=== PATIENT | male | born 1930 | race Caucasian/White ===

== ENCOUNTER 2017-03-14 10:52 | Inpatient (IN) ==
[2017-03-14] MEDS ORDERED: NS 1,000 ML IV ONE (11:14)
[2017-03-14] MEDS ORDERED: ZOFRAN IV PRN (11:14)
[2017-03-14 12:19] LABS: MANUAL DIFF NEEDED? NO; URINE SOURCE CATH
[2017-03-14 12:24] LABS: BASO% 0.2 % (0.0-0.8); HEMATOCRIT 43.6 % (42.0-52.0); HEMOGLOBIN 14.6 g/dL (14.0-18.0); LYMPH# 1.25 X1000 (1.2-3.4); LYMPH% 27.4 % (20.5-51.1); MCH 29.7 PG (27-31); MCHC 33.5 g/dL (33-37); MCV 88.6 FL (81-99); MONO% 19.7 % (1.7-9.3); MPV 9.7 FL (7.4-10.4); NEUT% 52.7 % (42.2-75.2); PLT 287 X1000 (130-400); RBC 4.92 XMIL (4.7-6.1)
[2017-03-14 12:26] LABS: BILIRUBIN URINE NEGATIVE (NEGATIVE); BLOOD URINE MODERATE (NEGATIVE); COLOR YELLOW; GLUCOSE URINE NEGATIVE (NEGATIVE); LEUKOCYTES URINE LARGE (NEGATIVE); NITRITE URINE NEGATIVE (NEGATIVE); PH URINE 5.5; PROTEIN URINE 30 mg/dL (NEGATIVE); SP GRAVITY URINE 1.023; TURBIDITY URINE HAZY (CLEAR); URINE MICRO REVIEW NEEDED? YES; UROBILINOGEN URINE NORMAL (NORMAL)
[2017-03-14 12:40] LABS: CALCIUM 10.5 mg/dL (8.8-10.2); POTASSIUM 4.1 mmol/L (3.5-5.1)
[2017-03-14 12:42] LABS: UR EPITHELIAL CELLS <10 /HPF (<10); URINE BACTERIA 4+ /HPF; URINE CULTURE NEEDED? YES; URINE WBC TNTC /HPF (<10)
[2017-03-14] MEDS: LOVENOX SUBQ SCH (14:11)
[2017-03-14] MEDS: LEVAQUIN 250 MG/D5W 250 MG/50 ML IVPB IV SCH (14:11)
[2017-03-15] MEDS: LOVENOX SUBQ SCH (13:06)
[2017-03-15] MEDS: LEVAQUIN 250 MG/D5W 250 MG/50 ML IVPB IV SCH (13:06)
[2017-03-16] MEDS: NS 1,000 ML IV SCH (10:31)
[2017-03-16] MEDS: PRIMAXIN IV SCH ×2 (11:01→21:29)
[2017-03-16] MEDS: NS IV SCH ×2 (11:01→21:29)
[2017-03-16] MEDS: LOVENOX SUBQ SCH (15:50)
[2017-03-17] MEDS: NS 1,000 ML IV SCH (01:00)
[2017-03-17] MEDS: NS IV SCH (04:59)
[2017-03-17] MEDS: PRIMAXIN IV SCH (04:59)
[2017-03-17] MEDS ORDERED: DITROPAN XL PO PRN (09:04)
[2017-03-17] MEDS ORDERED: INVANZ 1 GM/NS 1 GM/50 ML IVPB IV ONE (10:54)
[2017-03-17] MEDS: LOVENOX SUBQ SCH (12:21)
[2017-03-17] MEDS: INVANZ 1 GM/NS 1 GM/50 ML IVPB IV SCH (12:21)
[2017-03-17 13:28] LABS: INR 1.04; PROTIME 10.9 Seconds (9.2-11.7)
[2017-03-17] MEDS ORDERED: NS 250 ML ONE (14:31)
[2017-03-18 08:32] LABS: MANUAL DIFF NEEDED? NO
[2017-03-18 08:36] LABS: BASO% 0.9 % (0.0-0.8); EOS# 0.25 X1000 (0.0-0.7); EOS% 2.8 % (0.0-10.0); IMM GRAN# 0.21 X1000 (0.0-0.04); IMM GRAN% 2.4 % (0.0-0.5); LYMPH# 2.71 X1000 (1.2-3.4); LYMPH% 30.8 % (20.5-51.1); MCH 29.5 PG (27-31); MCHC 32.4 g/dL (33-37); MCV 90.9 FL (81-99); MONO# 1.01 X1000 (0.11-0.59); MONO% 11.5 % (1.7-9.3); MPV 9.4 FL (7.4-10.4); NEUT% 51.6 % (42.2-75.2); PLT 219 X1000 (130-400); RBC 4.07 XMIL (4.7-6.1)
[2017-03-18] MEDS: INVANZ 1 GM/NS 1 GM/50 ML IVPB IV SCH (09:30)
[2017-03-18] MEDS: LOPRESSOR PO SCH (09:30)
[2017-03-18] MEDS: LOVENOX SUBQ SCH (14:23)
[2017-03-19] MEDS ORDERED: NAPROSYN PO PRN (08:39)
[2017-03-19] MEDS: LOPRESSOR PO SCH (08:40)
[2017-03-19] MEDS: INVANZ 1 GM/NS 1 GM/50 ML IVPB IV SCH (08:41)
[2017-03-19] MEDS ORDERED: CULTURELLE PO SCH (09:00)
[2017-03-19 16:05] VITALS: BP 130/60
== END 2017-03-19 16:05 ==
LOC: ED 10:52 → 4N 12:57
PROVIDERS: ADMIT Internal Medicine; ATTEND Internal Medicine

== ENCOUNTER 2018-08-28 17:41 | Inpatient (IN) ==
[2018-08-28] MEDS ORDERED: TYLENOL PO PRN (18:32)
[2018-08-28] MEDS ORDERED: SALINE LOCK IV FLUID XX ONE (18:32)
[2018-08-28] MEDS: MORPHINE IV PRN ×2 (20:11→22:54)
[2018-08-28] MEDS: ZOFRAN IV PRN (20:12)
[2018-08-28 20:45] LABS: INR 1.05; PROTIME 14.6 Seconds (11.0-16.0)
[2018-08-28 20:46] LABS: BASO# 0.01 X1000 (0.0-0.2); HEMATOCRIT 38.4 % (42.0-52.0); HEMOGLOBIN 12.7 g/dL (14.0-18.0); IMM GRAN# 0.12 X1000 (0.0-0.04); IMM GRAN% 0.6 % (0.0-0.5); LYMPH% 7.5 % (20.5-51.1); MCHC 33.1 g/dL (33-37); MCV 87.7 FL (81-99); MONO% 7.9 % (1.7-9.3); MPV 9.6 FL (7.4-10.4); NEUT# 17.98 X1000 (1.4-6.5); PLT 300 X1000 (130-400); PTT 35.4 Seconds (22.3-41.8); RBC 4.38 XMIL (4.7-6.1); RDW 14.7 % (11.5-14.5); WBC 21.41 X1000 (4.8-10.8)
[2018-08-28 20:51] LABS: ALB/GLOB RATIO 1.1; ALBUMIN 3.3 g/dL (3.5-5.0); CALCIUM 8.3 mg/dL (8.8-10.2); CREATININE 3.5 mg/dL (0.7-1.2); PHOSPHORUS 2.5 mg/dL (2.7-4.5); TOTAL BILIRUBIN 0.45 mg/dL (0.20-1.00); TOTAL PROTEIN 6.4 g/dL (6.3-8.3)
[2018-08-28] MEDS ORDERED: AMIKACIN IV SCH (21:15)
[2018-08-28] MEDS ORDERED: NS IV SCH (21:15)
[2018-08-28] MEDS: NS 1,000 ML IV SCH (22:49)
[2018-08-29] MEDS ORDERED: MISC. PHARMACY COMMUNICATION SCH ×2 (00:15)
[2018-08-29] MEDS: NS IV SCH (00:42)
[2018-08-29] MEDS: AMIKACIN IV SCH (00:42)
--- NOTE | 2018-08-29 00:49 | HISTORY AND PHYSICAL ---
CHIEF COMPLAINT: Hematuria. HISTORY OF PRESENT ILLNESS: I received a call this afternoon from the patient's family stating that the patient had become very weak and was continuing to have gross blood and clots through his suprapubic catheter. The patient had seen Dr. Rasmussen yesterday in order to address chronic leaking around the suprapubic catheter. A cystoscopy was performed and the patient was sent home. The patient's family stated that he has gone downhill since then. They did the appropriate thing by calling Dr. Damon, who was nutritionists for Dr. Rasmussen and he recommended admission so they called me to admit the patient. The patient has a past medical history of multidrug resistant urinary tract infections in the past. We have been able to keep him out of the hospital since April by treating with prophylactic antibiotics. The cardinal symptoms of when he has a urinary tract infection is acute weakness, symptoms consistent with a small bowel obstruction and sometimes hematuria. PAST MEDICAL HISTORY: 1. History of prostate cancer. 2. Hypertension. 3. Coronary artery disease with stent placement. 4. Multiple small-bowel obstruction/ileus admissions usually associated with urinary tract infection. PAST SURGICAL HISTORY: 1. The patient has had a prostatectomy with suprapubic catheter. He had a cystoscopy yesterday. 2. Appendectomy. 3. Coronary stent placement. 4. The patient states that prior to seeing Dr. Rasmussen, he had been in reasonably good shape. He had continuing suprapubic catheter leakage which they were trying to solve. He states that "my life is right." He denies any fever or chills. He has had no cough, wheezing or shortness of breath. His chronic lower extremity edema has been reasonably well controlled and he has been taking his Lasix regularly. Oral intake has been normal. Bowel movements have been normal. He has not had any abdominal pain as in past admissions. The patient's daughter stated that he did throw up when he got to the hospital. It was a mild episode but nevertheless produced some streaks of blood in the vomitus. It was not grossly bloody, or black or tarry in appearance. 5. The patient is basically wheelchair bound. PHYSICAL EXAMINATION: GENERAL: He is an obese white male in no acute distress. He is alert, oriented, and recognized me. His speech is fluent and he seems to be aware of his surroundings and is operating at baseline. NECK: There are no carotid bruits or JVD. LUNGS: Clear to auscultation in all [place]. CARDIOVASCULAR: Regular and not tachycardic. ABDOMEN: Bowel sounds are present. Is soft but protuberant. The patient's catheter bag is grossly bloody. EXTREMITIES: The patient has 1+ pitting edema in his lower extremities which I think is at his optimal baseline. He never really is free of edema, but we just keep it controlled. NEUROLOGIC: Cranial nerves are intact. The patient's speech is clear. He is hard of hearing. PSYCHIATRIC: The patient's mood and affect are normal. LABORATORY: White cell count is 21,400, hemoglobin is 12.7. PT, PTT are normal. Sodium is low at 126, carbon dioxide is low at 20, BUN is elevated at 35, creatinine elevated to 3.5 (baseline 1.0). The patient's glucose is 211. ASSESSMENT AND PLAN: 1. The patient's post cystoscopy procedure with clot formation and difficulty with urination and pain is obviously going to fall into the realm of urologic investigation. I do believe the patient has a urinary tract infection, and based on previous cultures which showed multidrug resistant gram-negative organisms I am going to treat him with amikacin. The dose will need to be reduced due to his acute renal failure but hopefully we can reverse that with some fluids. We will check his BUN and creatinine daily. A consult has been put in for Dr. Rasmussen, Dr. Damon is covering for him this weekend and hopefully will see the patient in short order. 2. We are aware the patient has coronary disease. He is symptom-free right now. 3. We will monitor the patient's fluid status and sodium on a daily basis as well. 4. The present length of stay will likely be 3 to 4 days depending on what happens with his hematuria and his suprapubic catheter. Discharge will be to home with continued services at that time. cc: Noah Rizo MD
[2018-08-29] MEDS ORDERED: NS IV ONE (01:00)
[2018-08-29] MEDS ORDERED: AMIKACIN IV ONE (01:00)
[2018-08-29 06:47] LABS: HEMATOCRIT 43.3 % (42.0-52.0); HEMOGLOBIN 14.1 g/dL (14.0-18.0); MCH 29.4 PG (27-31); MCHC 32.6 g/dL (33-37); MCV 90.2 FL (81-99); MPV 9.7 FL (7.4-10.4); RBC 4.8 XMIL (4.7-6.1); RDW 15.3 % (11.5-14.5); WBC 16.44 X1000 (4.8-10.8)
[2018-08-29 07:21] LABS: CALCIUM 8.8 mg/dL (8.8-10.2); CREATININE 3.5 mg/dL (0.7-1.2); POTASSIUM 4.9 mmol/L (3.5-5.1)
[2018-08-29] MEDS: NS 1,000 ML IV SCH ×2 (07:24→18:23)
[2018-08-29] MEDS: MORPHINE IV PRN ×3 (08:09→22:52)
--- NOTE | 2018-08-29 08:42 | PROGRESS NOTE ---
DATE: 08/29/2018 SUBJECTIVE: According to the patient's son-in-law, he rested well last night. He was kept comfortable. They did have to do some manipulation of the catheter to keep the flow going. There were several clots that were extracted with flushes and such. OBJECTIVE: Vital Signs: Temperature is 99.1 degrees, pulse rate 97, respiratory rate 18, blood pressure 130/54, 95% saturated on room air. Physical Examination: General: The patient is somnolent but easily arousable and seems oriented when aroused. Lungs: Clear to auscultation. Cardiovascular: Regular. Genitourinary: Rae catheter bag is grossly bloody. Laboratory: White cell count is 16,000 which is down considerably from yesterday. Sodium is up to 129, BUN is 39, creatinine 3.5 which is unchanged from yesterday, blood sugar is 152. ASSESSMENT AND PLAN: 1. The patient's urinary tract infection and gross hematuria continue. Dr. Damon will likely see the patient today in place of Dr. Rasmussen. The patient is on amikacin dosed every 48 hours due to his renal failure. We are running fluids in a reasonably brisk pace and hope to see improvement in the patient's overall renal function. Most certainly, if we repeat cystoscopy and are able to extract any type of obstructing clots, or take care of any other issues, we are hopeful that this will improve as well. 2. Coronary artery disease, quiescent. 3. Sodium was slightly improved to 129. 4. Pending consultation with Dr. Damon and a possible procedure, the patient will still remain in the hospital for a day or two afterward due to age, infirmity, and comorbidities. 5. The patient again reiterated that he wanted to be No Code Level 1. We will put this in as a firm order. cc: Noah Rizo MD
[2018-08-29] MEDS ORDERED: DIPRIVAN 1% ONE (09:33)
[2018-08-29] MEDS ORDERED: XYLOCAINE-MPF 2% ONE (09:33)
--- NOTE | 2018-08-29 09:53 | CONSULTATION ---
DATE OF CONSULTATION: 08/28/2018 ATTENDING AND REFERRING PHYSICIAN: Dr. Rizo. HISTORY OF PRESENT ILLNESS: This 87-year-old male has a history of prostate cancer. He underwent radiation therapy as primary treatment (20 years ago). The patient's family states he developed scar tissue and went to [facility] where a radical retropubic prostatectomy was performed (open). The family states that because of the extensive scar tissue, he had to have a suprapubic tube placed. He has had the indwelling suprapubic tube and has it changed periodically by the family. The patient developed some leaking around the tube and he underwent cystoscopic exam in the urology office on Thursday. The patient's family states he had continued bleeding and sometimes clot retention. They state they know how to change the tube and have been irrigating it but he continues to bleed. The patient was admitted. He has recurrent urinary infections. They state he rarely has blood in the urine. PAST MEDICAL HISTORY: Coronary artery disease, hypertension, prostate cancer, history of small bowel obstructions that occur after he has a urinary infection (according to the family). PAST SURGICAL HISTORY: As noted in the HPI, coronary artery stent placement, appendectomy. SOCIAL HISTORY: He lives at home and is cared for by his family. No tobacco or alcohol use. ALLERGIES: He is allergic to oral and IV contrast, lorazepam, and other sulfa drugs. REVIEW OF SYSTEMS: The patient and family state he was doing well until he developed the hematuria. The patient's family states he was not having any bowel problems but did have some nausea and vomiting on the day of admission. There has been no chest pains or shortness of breath. PHYSICAL EXAMINATION: General: An obese, age apparent, white male who is cooperative. HEENT: Normal for age. Lungs: Clear. Cardiovascular: Regular rate and rhythm. Abdomen: Obese, soft. Direct tenderness around the suprapubic tube area. There is some contusion in that area. The suprapubic tube is draining bloody urine. Normal bowel sounds. No hepatosplenomegaly or masses. Genitourinary: Uncircumcised male. Both testes down. Rectal: Examination is deferred until surgery. Extremities: Some pitting edema. No cyanosis or clubbing. Neurologic: No focal deficits. LABORATORY EVALUATION: He has a white count of 16.44, hemoglobin 14.1, hematocrit of 43.3, platelets are 219,000. Serum sodium is 129, potassium 4.9, chloride 91, bicarb 19, BUN 39, creatinine 3.5 (his baseline appears to be 1.3). IMPRESSION: 1. History of prostate cancer, status post radiation therapy and then open radical retropubic prostatectomy with indwelling suprapubic tube. 2. Gross hematuria and clot retention. PLAN: Cystoscopic exam - attempt through the urethra but we will probably have to go through the suprapubic tube tract. Irrigate clots and cauterize any bleeding area if able. The planned procedure, benefits versus risks, and possible complications, including, but not limited to not being able to do the cystoscopic exam through the urethra or the suprapubic tube tract, not being able to remove all the clots, need for further surgery were discussed. They seemed to understand and desired to proceed. cc: MD Noah Linder MD
[2018-08-29] MEDS ORDERED: ZOFRAN ONE (10:25)
[2018-08-29] MEDS ORDERED: DECADRON ONE (10:25)
[2018-08-29] MEDS ORDERED: LABETALOL (DOSE) ONE (12:01)
--- NOTE | 2018-08-29 13:00 | OPERATIVE NOTE ---
PROCEDURE DATE: 08/29/2018 PREOPERATIVE DIAGNOSIS: History of prostate cancer, status post radiation therapy and then radical retropubic prostatectomy with indwelling suprapubic tube and clot retention. POSTOPERATIVE DIAGNOSIS: History of prostate cancer, status post radiation therapy and then radical retropubic prostatectomy with indwelling suprapubic tube and clot retention. PROCEDURE PERFORMED: Cystoscopic exam through the suprapubic tube tract, clot irrigation and removal of old clot with the grasping forceps, fulguration of some bleeding areas, replacement of the suprapubic tube. SURGEON: Braden Damon M.D. ANESTHESIA: General via laryngeal mask. FINDINGS: Cystoscopic exam through the urethra revealed complete obstruction at the bladder neck area. Cystoscopic exam through the suprapubic tube tract reveals an area that appears to be outside of the bladder that was dilated. In the bladder, there was a large amount of clot, both old and new. There were some nodules beneath the clot in the trigone area of the bladder. No papillary lesions noted. After clot was removed, there were some bleeding areas that were cauterized with the Bugbee electrode. Rectal exam reveals an empty prostatic fossa that was firm, consistent with previous radiation therapy and prostatectomy. INDICATION FOR PROCEDURE: This 87-year-old male has a history of prostate cancer. He is status post radiation therapy over 20 years ago, and either had recurrence or some type of scar tissue, and underwent open radical retropubic prostatectomy also over 20 years ago. The patient had an indwelling suprapubic tube placed at that time. It has been changed periodically by family, and he developed some leakage around the tube, and had a cystoscopic exam in the office, and has had gross hematuria since then. DESCRIPTION OF PROCEDURE: After informed consent was obtained from the patient and family, and him receiving his routine IV antibiotics, he was taken to the main OR cystoscopy room and placed in the supine position. General anesthesia via laryngeal mask was achieved. He was then placed in the low lithotomy position, and prepped and draped in the usual sterile fashion for lower abdominal surgery and cystoscopic exam. A 21-Indian sheath cystoscope was passed through the patient's urethra and up to the external sphincter area. The scope passed through the external sphincter area, but met an immediate end. A 0.035 glidewire was passed through the cystoscope, and the area was probed, but would not go up into the bladder. The wire and cystoscope were removed, the suprapubic tube was removed, and a 21-Indian sheath cystoscope then was passed through the suprapubic tube tract and into the bladder with the findings as noted above. A large amount of old and fresh clot was removed. The grasping forceps were placed, and multiple trips were made into the bladder, removing old adherent clot. After this was completed, there was still some clot in the bladder, but the area was wide open. The Bugbee electrode was placed, and a few of the oozing areas were cauterized. There were no arterial bleeding areas noted. The length from the bladder to the skin was indicated on the cystoscope, and a 22-Indian, 3-way coude catheter was placed at that depth. Then, 15 mL of sterile water were placed in the Rae's balloon. The efflux was dark pink. Continuous bladder irrigation was started, and it became very light pink. Rectal exam was then performed. He tolerated the procedure well. Estimated blood loss was 10 mL. He was taken to the recovery room in good condition. cc: MD Noah Linder MD
[2018-08-30] MEDS: MORPHINE IV PRN ×8 (01:01→21:49)
[2018-08-30] MEDS: NS 1,000 ML IV SCH ×4 (01:50→21:54)
[2018-08-30 07:13] LABS: CALCIUM 7.9 mg/dL (8.8-10.2); CREATININE 2.8 mg/dL (0.7-1.2)
[2018-08-30 07:14] LABS: POTASSIUM 4.2 mmol/L (3.5-5.1)
[2018-08-30 08:53] LABS: BASO# 0.01 X1000 (0.0-0.2); BASO% 0.1 % (0.0-0.8); HEMATOCRIT 31.8 % (42.0-52.0); HEMOGLOBIN 10.3 g/dL (14.0-18.0); IMM GRAN# 0.03 X1000 (0.0-0.04); IMM GRAN% 0.2 % (0.0-0.5); LYMPH# 0.68 X1000 (1.2-3.4); LYMPH% 5.3 % (20.5-51.1); MCH 28.6 PG (27-31); MCHC 32.4 g/dL (33-37); MCV 88.3 FL (81-99); MONO% 6.3 % (1.7-9.3); MPV 9.9 FL (7.4-10.4); NEUT# 11.23 X1000 (1.4-6.5); NEUT% 88.1 % (42.2-75.2); PLT 245 X1000 (130-400); RDW 15.2 % (11.5-14.5); WBC 12.75 X1000 (4.8-10.8)
[2018-08-30 08:57] LABS: BANDS 10 % (0-1); LYMPHS 8 % (21-51); MONO 6 % (1-9); SEGS 76 % (42-75)
--- NOTE | 2018-08-30 09:21 | PROGRESS NOTE ---
DATE: 08/30/2018 SUBJECTIVE: The patient states that he is feeling better. He is still having some bladder spasm and cramps requiring pain medication. He was feeling well enough to eat something this morning, which is more along the lines of his usual levels of activity. He did not feel like he was up to getting up in the chair today though. Cystoscopy results were reviewed with me yesterday with Dr. Damon. The patient currently has a three-way catheter and is having continuous flush. The urine is clear. OBJECTIVE: Vital Signs: 98.1, 84, 16, 131/66, 99% saturated on nasal cannula. Physical Examination: Respiratory: The patient's lungs are clear. Cardiovascular: Regular. Neuropsychiatric: The patient is alert, oriented, conversive, and appropriate. Genitourinary: Urine in the Rae bag is clear. He has large bags for cycling through the bladder hanging at the present time. ASSESSMENT AND PLAN: 1. The patient is under treatment for a urinary tract infection. His gross hematuria has resolved following cystoscopy by Dr. Damon. Urine culture has grown back a gram-negative anum, which has not been identified and we do not have sensitivities yet. He is on amikacin renally dosed at the present time. We are continuing fluids. 2. The patient's acute renal failure has improved with hydration and with removal of blood clots from the bladder. We will continue to look for progress in this regard. I would like to get him back to baseline before discharge home. 3. Sodium is improved to 131. 4. Cystoscopy yesterday revealed some areas on the trigone which may represent some type of cancer recurrence. The family has elected not to discuss this with the patient as he gets very anxious about it. I do not think, given his age and overall condition that he would be a candidate for any type of aggressive treatment either. 5. No Code level 1. cc: Noah Rizo MD
[2018-08-30] MEDS ORDERED: MYRBETRIQ E.R. PO ONE (15:27)
--- NOTE | 2018-08-30 15:59 | PROGRESS NOTE ---
DATE: 08/30/2018 Mr. De Dios reports feeling better today. He has not had to be irrigated by nursing staff. His urine has been running light pink to clear. When irrigation was turned down per patient and his family, the patient has had spasms. OBJECTIVE: Vital Signs: T 97.8, P 83, BP 146/71. General: No acute distress, pleasant male. Abdomen: Nontender, nondistended. Suprapubic tube in place draining light pink urine. PERTINENT LABS: His hematocrit is 32, creatinine is 2.8. ASSESSMENT/PLAN: 87-year-old male with gross hematuria and clot retention who underwent cystoscopy with clot irrigation and fulguration of bleeding and placement of suprapubic tube on 08/29/2017. Per family the urine has been looking marginally better. I have discussed with the patient that if we are unable to wean him off continuous bladder irrigation I could take him to the operating room on 09/01 or 09/02 for another look. His family is concerned about patient being put to sleep so soon and would like to be as conservative as possible. cc: MD Noah Benson MD
[2018-08-31] MEDS: ZOFRAN IV PRN ×2 (00:08→05:25)
[2018-08-31] MEDS: MORPHINE IV PRN ×2 (01:30→14:25)
[2018-08-31] MEDS: AMIKACIN IV SCH (01:58)
[2018-08-31] MEDS: NS IV SCH (01:58)
[2018-08-31] MEDS ORDERED: LANOXIN IV ONE (05:14)
[2018-08-31] MEDS ORDERED: LOPRESSOR PO ONE (05:15)
--- NOTE | 2018-08-31 07:29 | EKG Report ---
Test Performed on : 08/31/2018 04:51:01 AM Test Reason : elevated HR on tele Blood Pressure : / mmHG Vent. Rate : 121 BPM Atrial Rate : 069 BPM P-R Int : 000 ms QRS Dur : 122 ms QT Int : 364 ms P-R-T Axes : 000 008 -26 degrees QTc Int : 516 ms Atrial fibrillation. with rapid ventricular response. Right bundle branch block Possible Lateral infarct , age undetermined Possible Inferior infarct (cited on or before 27-SEP-2010) Abnormal ECG When compared with ECG of 01-FEB-2014 08:53, Atrial fibrillation. has replaced Sinus rhythm. Vent. rate has increased BY [address] now depressed in Anterior leads Confirmed by Sallie MALONEY, Noah Brewer ([id number]) on 09/01/2018 6:34:57 AM
[2018-08-31] MEDS: NS 1,000 ML IV SCH ×3 (08:02→23:01)
[2018-08-31] MEDS: LOPRESSOR PO SCH (08:05)
[2018-08-31] MEDS: REGLAN PO SCH ×3 (08:05→20:36)
[2018-08-31 08:08] LABS: BASO# 0.02 X1000 (0.0-0.2); BASO% 0.2 % (0.0-0.8); HEMATOCRIT 33.8 % (42.0-52.0); HEMOGLOBIN 10.9 g/dL (14.0-18.0); IMM GRAN# 0.13 X1000 (0.0-0.04); IMM GRAN% 1.1 % (0.0-0.5); LYMPH# 0.91 X1000 (1.2-3.4); LYMPH% 7.6 % (20.5-51.1); MCH 28.5 PG (27-31); MCHC 32.2 g/dL (33-37); MCV 88.3 FL (81-99); MONO# 0.95 X1000 (0.11-0.59); MONO% 7.9 % (1.7-9.3); MPV 9.5 FL (7.4-10.4); NEUT# 10.02 X1000 (1.4-6.5); NEUT% 83.2 % (42.2-75.2); PLT 268 X1000 (130-400); RBC 3.83 XMIL (4.7-6.1); RDW 15.6 % (11.5-14.5); WBC 12.03 X1000 (4.8-10.8)
[2018-08-31] MEDS ORDERED: RELISTOR SUBQ ONE (08:15)
--- NOTE | 2018-08-31 08:16 | PROGRESS NOTE ---
DATE: 08/31/2018 SUBJECTIVE: Mr. De Dios reports a decent night overnight. He denies significant bladder spasms. Per his son, his appetite has improved mildly. He did not have to be irrigated manually. OBJECTIVE: Vital Signs: T 98.2 degrees, P 95, BP 157/62. His urinary output was recorded in the amount of 1900 mL. General: No acute distress. Abdomen: Nontender, nondistended. : Rae catheter in place, draining light pink urine without clots. Pertinent Laboratory Data: White cell count is 13,000, hematocrit is 32. Creatinine is 2.8. That was yesterday. ASSESSMENT/PLAN: An 87-year-old male with indwelling suprapubic tube who was admitted with gross hematuria with clots. His urine culture from 08/28/2018 came back as Pseudomonas aeruginosa which is pansensitive. I have discussed with the patient and his son that having an indwelling Rae catheter, even despite maintenance antibiotics, he will always have bacteriuria. I have discussed with the patient's son again that I am not sure as to the reason why he bled after office cystoscopy. As per patient and his family, after leaving the office, his urine was clear for at least 2 hours and then suddenly turned bloody. They deny trauma or pulling on the Rae catheter. 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 In any event, he has slowly improved. His family is again opposed to having a cystoscopy under anesthesia as a second look. I told them that as long as the condition of his urine did not look worse and he did okay without continuous bladder irrigation, from a urologic standpoint, he would be okay for discharge. PLAN: 1. Stop continuous bladder irrigation and observe the urine. 2. We will follow. 3. We will defer to Dr. Rizo the UTI treatment. cc: MD Noah Benson MD
[2018-08-31 08:24] LABS: CALCIUM 7.5 mg/dL (8.8-10.2); CREATININE 1.9 mg/dL (0.7-1.2); POTASSIUM 3.9 mmol/L (3.5-5.1)
--- NOTE | 2018-08-31 08:34 | PROGRESS NOTE ---
DATE: 08/31/2018 SUBJECTIVE: The patient's family stated that he was restless all night, very uncomfortable, and nauseated. Dr. Meza was called in the early hours of the morning due to the patient's heart rate being persistently in the 130s. He was found to be in atrial fibrillation and was given extra dose of metoprolol and some digoxin, and he seems to have calmed the rate down considerably. He is presently at 95 beats per minute. He is still nauseated. He states that he does not feel well. He has not had a bowel movement. OBJECTIVE: Vital Signs: 98.2, 95, 18, 157/62, 97% saturated on 2 L nasal cannula. Lungs: The patient's lungs are clear. Cardiovascular: Appears to be irregular rhythm at approximately 96 beats per minute at the time of my examination. Abdomen: Scarce bowel sounds. He is slightly distended. Neurological: The patient is intact. He is alert and oriented, conversive, and appropriate. Psychiatric: Mood and affect are appropriate. ASSESSMENT AND PLAN: 1. The patient's urinary tract infection is being treated with amikacin in pulse doses due to his acute renal failure. His urine culture grew out Pseudomonas with no significant resistance pattern. I do not feel impelled to change his antibiotics at the present time. We are continuing intravenous fluids and bladder irrigation. 2. The patient's acute renal failure had improved yesterday. Labs are still pending this morning. Hopefully, they will be moving in the right direction. 3. We will recheck sodium this morning as well. This is still pending. 4. The patient had onset of atrial fibrillation yesterday. I plan to continue his metoprolol 50 mg daily and add some digoxin for rate control. He is not a candidate for anticoagulation given his gross hematuria and high fall risk. 5. The patient has had nausea and extremes in belching overnight. He has a long history of ileus/small bowel obstruction associated with almost every acute illness for which I have ever treated him. I plan to give him some Relistor since he has been on narcotics fairly regularly since admission, and hopefully we can keep his bowels moving in the right direction. I suspect that he is working on an ileus at the present time, but, by and large, they resolve with treatment of primary problems. 6. Dr. Rasmussen is following for hematuria. 7. No Code Blue Level 1. cc: Noah Rizo MD
[2018-08-31] MEDS: LANOXIN PO SCH (19:48)
[2018-08-31] MEDS ORDERED: RESTORIL PO SCH (21:00)
[2018-09-01 06:42] LABS: BASO# 0.02 X1000 (0.0-0.2); BASO% 0.2 % (0.0-0.8); HEMATOCRIT 35.8 % (42.0-52.0); HEMOGLOBIN 11.7 g/dL (14.0-18.0); IMM GRAN# 0.28 X1000 (0.0-0.04); IMM GRAN% 2.1 % (0.0-0.5); LYMPH# 1.48 X1000 (1.2-3.4); LYMPH% 11.1 % (20.5-51.1); MCH 28.8 PG (27-31); MCHC 32.7 g/dL (33-37); MCV 88.2 FL (81-99); MONO% 7.5 % (1.7-9.3); MPV 9.6 FL (7.4-10.4); NEUT# 10.51 X1000 (1.4-6.5); NEUT% 79.1 % (42.2-75.2); PLT 298 X1000 (130-400); RBC 4.06 XMIL (4.7-6.1); RDW 15.6 % (11.5-14.5); WBC 13.29 X1000 (4.8-10.8)
[2018-09-01 07:01] LABS: CALCIUM 7.9 mg/dL (8.8-10.2); CREATININE 1.6 mg/dL (0.7-1.2); POTASSIUM 4.1 mmol/L (3.5-5.1)
[2018-09-01] MEDS ORDERED: RELISTOR SUBQ ONE (08:42)
--- NOTE | 2018-09-01 09:04 | PROGRESS NOTE ---
DATE: 09/01/2018 SUBJECTIVE: The patient had a very quiet night. He was comfortable all night. His son-in-law stated that he was a bit disoriented and continues to lose his orientation as to time, place, and situation intermittently. He does not have any abdominal pain. He is not belching this morning. OBJECTIVE: Vital signs: 98, 86, 16, 158/69, 98% saturated on 2 L nasal cannula. Lungs: Clear. Cardiovascular: Appears to be regular at the present time. He does not appear to be in atrial fibrillation. Abdomen: Bowel sounds are very scarce, but not distended and not tender. Genitourinary: Urine in the Rae bag is red-tinged, but there is no gross blood present. LABORATORY DATA: White cell count 13.2, hematocrit 35.8. Serum sodium 146. CO2 slightly low at 20. BUN 39, creatinine 1.6, blood sugar 170. ASSESSMENT AND PLAN: 1. Urinary tract infection is being treated with pulse-dose amikacin. Hopefully the pharmacy is re-evaluating this given his improved kidney numbers. I will try and call to remind them. His culture grew out Pseudomonas with no resistance pattern. 2. Acute renal failure continues to improve. 3. The patient's sodium is venturing up as well as the chloride. I think I will try and switch him over to half-normal saline for his intravenous fluids. We may need to start reinstituting some Lasix shortly. 4. The patient had onset of atrial fibrillation. He appears to be in sinus rhythm today. We are continuing with rate control agents. He is not a candidate for anticoagulation. 5. The patient's nausea and abdominal distention have quelled overnight. I am going to re-dose his Relistor hopefully to have a bowel movement. 6. I spoke with Dr. Rasmussen this morning and I do not think any other operative procedures are indicated or necessary at the present time. Dr. Rasmussen is not planning any intervention and I agree with this approach. 7. The patient will be put up in the chair today twice. He said he feels that he is good enough to do that. 8. The patient's disorientation I think is age and situation related, also with the medications that he has been taking. These could certainly alter his sensorium. Hopefully, as we clear up his infection and he gets back to his baseline, his orientation will improve as well. 9. No Code Blue Level 1. I spoke with the patient's son-in-law at length and the family is in agreement with the approach that we are taking at the present time. cc: Noah Rizo MD
[2018-09-01] MEDS: LANOXIN PO SCH (09:19)
[2018-09-01] MEDS: REGLAN PO SCH (09:19)
[2018-09-01] MEDS: LOPRESSOR PO SCH (09:19)
[2018-09-01] MEDS ORDERED: AMIKACIN IV SCH (14:00)
[2018-09-01] MEDS ORDERED: NS IV SCH (14:00)
[2018-09-01] MEDS ORDERED: LASIX IV ONE ×3 (16:41→17:25)
[2018-09-01] MEDS: MORPHINE IV PRN (16:54)
[2018-09-01 17:28] VITALS: BP 157/87
[2018-09-01] MEDS ORDERED: LASIX ONE (17:35)
[2018-09-01 17:56] LABS: ALLEN TEST YES; BE -5.5 mmoll (-3.0-3.0); BLOOD TYPE ARTERIAL; HCO3-(ACT) 20.6 mmoll (20.0-26.0); METHB 1.4 % (0.0-1.5); MODALITY BI PAP; O2(CT) 17.4 mL/dL (15.0-23.0); PCO2(98.6) 25 mmHg (35-45); PO2(98.6) 112 mmHg (60-100); SAMPLE BLOOD; SAO2 98.9 % (95.0-100.0); THB 12.8 g/dL (11.5-17.4); pH(98.6) 7.44 (7.35-7.45)
[2018-09-01] MEDS ORDERED: MORPHINE IV ONE (18:12)
[2018-09-01] MEDS ORDERED: SODIUM BICARBONATE 8.4% IV ONE (18:12)
[2018-09-01] MEDS ORDERED: ATIVAN IV ONE (18:12)
[2018-09-01] MEDS ORDERED: ZOSYN 2.25 GM in NS 50 ML IV SCH (18:15)
[2018-09-01] MEDS ORDERED: DUONEB (A & A) INH ONE (18:19)
[2018-09-01] MEDS ORDERED: LANOXIN IV ONE (18:20)
--- NOTE | 2018-09-01 18:22 | PROGRESS NOTE ---
DATE: 09/01/2018 SUBJECTIVE: Mr. De Dios reports a better night overnight. He is excited that he has had a bowel movement. His continuous bladder irrigation was turned off, and he has had pink urine without clots. OBJECTIVE: Temperature 99.9, P 110, and BP 152/114. His urine output was recorded in the amount of 3000 mL. In general, no acute distress. Abdomen protuberant and nontender to palpation. Suprapubic tube in place draining pink urine without clots. PERTINENT LABORATORY DATA: White cell count 13,000, hematocrit 36, and creatinine is 1.6 down from 1.9. 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 I have discussed with his family that as he may have a few clots left in the bladder, he could continue to have hematuria for quite some time as in a couple of weeks. We discussed that unless we take a second look to make sure the clots are all removed he may end up going home with pink urine as the family is aware of how to irrigate the suprapubic tube. His family is concerned about him going under anesthesia, and would like to be conservative as much as possible. PLAN: 1. Keep the suprapubic tube to gravity drainage and irrigate it manually p.r.n. 2. No further urologic intervention needed at this point. I will follow him while he is in the hospital. cc: MD Noah Benson MD
[2018-09-01] MEDS ORDERED: NITROGLYCERIN TOP SCH (18:30)
--- NOTE | 2018-09-01 18:41 | PROGRESS NOTE ---
DATE: 09/01/2018 Critical Care Note SUBJECTIVE: The patient was doing fine all day. He ate breakfast though did sit upright in the bed. He had a little bit of lunch, but the daughter states that he has been "spitting up all day". He is spitting up brown sputum. She denies any vomiting or other aspiration type event during the day. The patient was apparently doing well until about 04:00 in the afternoon. He got checked by respiratory therapy, and called for a little bit of pain medicine. Only a few minutes after that, he began to have worsening breathing with more rattly breath sounds. He had very coarse wet sounding respirations and he apparently became more tachypneic as time went on. He eventually called me around 5:30 in the afternoon, and we started him on BiPAP after giving him some Lasix. OBJECTIVE: Vital Signs: Temperature is 99.9 degrees, pulse rate 110, respiration rate is 36, and blood pressure 157/87. General: The patient is severely tachypneic and is struggling He is alert and interactive, but he is pulling at his BiPAP mask. Lungs: The patient's lungs are very wet sounding. He has expiratory rhonchi and inspiratory rhonchi. Cardiovascular: Tachycardic. I cannot tell whether he is in atrial fibrillation or in a regular tachycardia. The urine in his Rae bag is blood tinged. The sputum that I was shown was a deep brownish color, and actually had the appearance of food and/or feculent matter. It did not smell. LABORATORIES: Pending. ASSESSMENT AND PLAN: 1. The patient is do not resuscitate level 1. I reconfirmed this with the patient's family. They do not want him intubated. We will continue BiPAP. I am going to give him some medication to help calm him down, give him some bicarb as well as a breathing treatment. We will get some cardiac enzymes in the morning. 2. This rapid down turn could be any number of issues, none of which we have any great options for treating. He has made it clear that he is "ready to go", and I do not want to intervene too aggressively if indeed this is his time. The family is aware of the gravity of the situation, and agree with the treatment plan going forward. cc: Noah Rizo MD MTDD
--- NOTE | 2018-09-01 19:01 | Diag Imaging Result Doc PS360 ---
EXAM: CHEST-PORTABLE - 09/01/2018 HISTORY: tachypnea TECHNIQUE: Portable chest COMPARISON: 04/03/2016 FINDINGS: Heart size appears within normal limits. Inspiration is mildly shallow, with mild subsegmental atelectasis at the lung bases. There is an apparent small right pleural effusion. There is no discrete consolidation, gross pulmonary edema, or pneumothorax identified. There is some possible gaseous distention of the stomach noted in the upper abdomen. IMPRESSION: Mildly shallow inspiration, with mild atelectasis at lung bases. Small right pleural effusion. Possible gaseous distention of stomach noted. Electronically signed by Hever Still 09/01/2018 6:59 PM
[2018-09-01] MEDS ORDERED: DUONEB (A & A) INH SCH ×2 (19:30→21:00)
--- NOTE | 2018-09-02 07:56 | EKG Report ---
Test Performed on : 09/01/2018 5:37:25 PM Test Reason : dyspnea Blood Pressure : / mmHG Vent. Rate : 117 BPM Atrial Rate : 117 BPM P-R Int : 160 ms QRS Dur : 130 ms QT Int : 348 ms P-R-T Axes : 048 085 -18 degrees QTc Int : 485 ms Sinus tachycardia. with frequent premature ventricular complexes. 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 has replaced Atrial fibrillation. T wave inversion more evident in Anterior leads Confirmed by Noah Rizo MD ([id number]) on 09/02/2018 12:20:56 PM
--- NOTE | 2018-09-03 05:08 | DISCHARGE SUMMARY ---
ADMISSION DATE: 08/28/2018 DISCHARGE DATE: 09/01/2018 DISCHARGE DIAGNOSES: 1. Gross hematuria. 2. Acute respiratory failure. 3. Paroxysmal atrial fibrillation. 4. Complication of chronic suprapubic catheter. 5. Chronic ischemic heart disease. HOSPITAL COURSE: This 87-year-old white male was admitted to the hospital with gross hematuria following a procedure to a leaky Rae catheter. He was admitted to the hospital. Dr. Damon was on-call and he rescoped the patient, removing a lot of the blood clots that were causing his gross hematuria. He put him on a three-way catheter and the bladder was continuously flushed for approximately 48 hours. The patient's condition seemed to improve for a couple days. He did have 1 isolated event where his heart rate shot up and he was in atrial fibrillation. He was given some beta teo and digoxin, and this seemed to bring him back into sinus rhythm. The patient continued to progress and told me on the morning of his demise that he was feeling somewhat better and wanted to get in the chair. He, apparently, ate breakfast well but did not eat much for lunch. His family said that he was "spitting up all day." He did not have a vomiting event nor was there any witnessed aspiration. At approximately 4:35, the patient had acute respiratory decompensation with very wet rales and respiratory distress. The patient had made it clear earlier that he did not want to be resuscitated. We put him on BiPAP, gave him some Lasix and other supportive measures for improved oxygenation. Unfortunately, the patient passed sometime in the late hours of the evening. His body was released just after midnight. There are no nursing notes present to give us a hand as to what happened after I saw the patient at approximately 6:30 p.m. I had been called because of his respiratory distress and came in and saw the patient somewhere between 6 and 6:30. There is nothing entered in the chart that I can find after that time. No resuscitative efforts were made and the family was present. cc: Noah Rizo MD
== END 2018-09-01 20:05 | disposition expired | DRG 907 ==
LOC: DIRADM 17:41 → 4N 19:07
PROVIDERS: ADMIT Internal Medicine; ATTEND Internal Medicine
CPT/HCPCS: 71010; 71045; 80048; 80053; 80150; 82805; 84100; 85025; 85027; 85610; 85730; 87077; 87088; 87186; 93005; 93010; 94640; 94660; 94761; 94799; A9270; J0278; J1100; J1160; J1940; J2270; J2405; J2543; J7030